=== PATIENT | female | born 1995 | race Two or more races ===

== ENCOUNTER 2022-11-27 18:50 | Inpatient (IN) | payer MEDICAID ==
[~2022-11-27] VITALS: Ht 149.9 cm; Wt 70.3 kg
[2022-11-27 19:17] VITALS: BP 112/75; PULSE 95; RESP 19; TEMP 98.1
[2022-11-27] MEDS ORDERED: PRETAB PO (19:17)
[2022-11-27] MEDS ORDERED: OSC500 PO (19:17)
[2022-11-27] MEDS ORDERED: FERR-149 PO (19:17)
[2022-11-27] MEDS ORDERED: METHYLERGONOVINE 0.2 MG/ML AMP IM PRN (22:05)
[2022-11-27] MEDS ORDERED: LACTATED RINGERS 500 ML IV ONE (22:05)
[2022-11-27] MEDS ORDERED: ONDANSETRON 4 MG/2 ML VIAL IVP PRN (22:10)
[2022-11-27] MEDS ORDERED: MORPHINE SULFATE 10 MG/ML VIAL IVP PRN (22:10)
[2022-11-27 22:42] LABS: BASOPHILS % (AUTO) 0.1 % (0.0-2.0); EOSINOPHILS # (AUTO) 0.1 K/uL (0-0.4); HEMATOCRIT 35.7 % (36-48); HEMOGLOBIN 12.1 g/dL (12.0-16.0); LYMPHOCYTES # (AUTO) 2.4 K/uL (2.5-16.5); LYMPHOCYTES % (AUTO) 22.5 % (20.5-51.1); MEAN CORPUSCULAR HEMOGLOBIN 30 pg (27-31); MEAN CORPUSCULAR HGB CONC 34 g/dL (33-37); MEAN CORPUSCULAR VOLUME 89.5 fL (80-94); MONOCYTES # (AUTO) 0.9 K/uL (0.8-1.0); MONOCYTES % (AUTO) 8.3 % (1.7-9.3); NEUTROPHILS # (AUTO) 7.2 K/uL (1.8-7.7); NEUTROPHILS % (AUTO) 68.1 % (42.2-75.2); PLATELET COUNT (AUTO) 245 K/uL (140-450); RED BLOOD CELL COUNT(AUTO) 3.99 MIL/uL (4.20-5.40); RED CELL DISTRIBUTION WIDTH 13.7 % (11.6-13.7); WHITE BLOOD COUNT (AUTO) 10.5 K/uL (4.8-10.8)
[2022-11-27] MEDS: LACTATED RINGERS 1,000 ML IV SCH ×2 (22:44→23:41)
[2022-11-27 23:01] LABS: ANION GAP 12.5 (8-16); CALCIUM 8.4 mg/dL (8.5-10.1); CARBON DIOXIDE 23.4 mmol/L (21-32); CREATININE 0.8 mg/dL (0.6-1.3); POTASSIUM 3.9 mmol/L (3.5-5.1); TOTAL BILIRUBIN 0.2 mg/dL (0.0-1.0); TOTAL PROTEIN, SERUM 6.6 g/dL (6.4-8.2)
[2022-11-27 23:17] LABS: ALBUMIN 2.7 g/dL (3.4-5.0)
[2022-11-27 23:31] LABS: INR 0.86 (0.8-1.2); PARTIAL THROMBOPLASTIN TIME 24.7 secs (22-35.6); PROTHROMBIN TIME 9.1 secs (10.8-13.4)
[2022-11-27] MEDS ORDERED: ROPIVACAINE 0.2%/NS PREMIX 200 ML EPI ONE (23:40)
[2022-11-28] MEDS ORDERED: ROPIVACAINE 0.2%/NS PREMIX 100 ML EPI SCH (00:10)
[2022-11-28 03:58] LABS: APPEARANCE,URINE CLEAR (CLEAR); BILIRUBIN,URINE NEGATIVE (NEGATIVE); BLOOD, URINE 3+ (NEGATIVE); COLOR,URINE YELLOW (YELLOW); LEUKOCYTE ESTERASE ,URINE TRACE (NEGATIVE); NITRITE, URINE NEGATIVE (NEGATIVE); PROTEIN,URINE NEGATIVE (NEGATIVE); UGLUCOSE NEGATIVE (NEGATIVE); UROBILINOGEN,URINE 0.2 EU/dL (0.2 - 1)
[2022-11-28 04:11] LABS: BACTERIA,URINE OCCASSIONAL /HPF (None Seen); RBC,URINE >100 /HPF (0-5); WBC,URINE 0-5 /HPF (0-5)
[2022-11-28] MEDS: LACTATED RINGERS 1,000 ML IV SCH ×2 (05:04→12:35)
[2022-11-28] MEDS ORDERED: OXYTOCIN 20 UNITS in LACTATED RINGERS 1,000 ML IV SCH ×2 (07:35→18:45)
[2022-11-28] MEDS ORDERED: OXYTOCIN 20 UNITS/LR PREMIX 1,000 ML IV ONE (10:39)
[2022-11-28] MEDS ORDERED: ROPIVACAINE 0.2%/NS PREMIX 200 ML EPI ONE (13:16)
[2022-11-28] MEDS ORDERED: AMPICILLIN 2,000 MG in NACL 0.9% 100 ML IV SCH (14:15)
[2022-11-28] MEDS ORDERED: LIDOCAINE 1% 500 MG/50 ML VIAL ONE (14:56)
[2022-11-28] MEDS ORDERED: AMPICILLIN 2,000 MG VIAL ONE (14:59)
[2022-11-28] MEDS ORDERED: LIDOCAINE 1% 500 MG/ 50 ML VIAL INJ ONE (15:05)
[2022-11-28] MEDS ORDERED: MEASLES, MUMPS, AND RUBELLA 1 VIAL SQVAC ONE (16:00)
[2022-11-28] MEDS ORDERED: HYDROcodone/APAP 5/325 MG 1 TAB TAB PO PRN (16:00)
[2022-11-28] MEDS ORDERED: BENZOCAINE/MENTHOL 20%-0.5% 60 GM CAN TP PRN (16:00)
[2022-11-28] MEDS ORDERED: DOCUSATE SODIUM 100 MG GELCAP PO PRN (16:00)
[2022-11-28] MEDS ORDERED: bisacodyL 5 MG TABEC PO PRN (16:00)
[2022-11-28] MEDS ORDERED: METHYLERGONOVINE 0.2 MG TAB PO PRN (16:00)
[2022-11-28] MEDS ORDERED: METHYLERGONOVINE 0.2 MG/ML AMP IM PRN ×2 (16:00→18:45)
[2022-11-28] MEDS ORDERED: SIMETHICONE 80 MG TAB.CHEW PO PRN (16:00)
[2022-11-28] MEDS ORDERED: IBUPROFEN 800 MG TAB PO PRN (16:00)
[2022-11-28] MEDS ORDERED: IBUPROFEN 600 MG TAB PO PRN (16:00)
[2022-11-28] MEDS ORDERED: OXYTOCIN 10 UNITS/ML VIAL IM PRN (16:00)
[2022-11-28] MEDS ORDERED: LACTATED RINGERS 1,000 ML IV SCH (18:45)
[2022-11-28] MEDS ORDERED: MORPHINE SULFATE 5 MG/ML VIAL IVP PRN (18:45)
[2022-11-28] MEDS ORDERED: ONDANSETRON 4 MG/2 ML VIAL IVP PRN (18:45)
[2022-11-29 10:04] LABS: HEMATOCRIT 28.8 % (36-48); HEMOGLOBIN 9.8 g/dL (12.0-16.0)
[2022-11-29] MEDS: HYDROcodone/APAP 5/325 MG 1 TAB TAB PO PRN (21:00)
[2022-11-30] MEDS: HYDROcodone/APAP 5/325 MG 1 TAB TAB PO PRN (06:56)
== END 2022-11-30 11:45 | disposition home or self-care (01) | DRG 560 ==
LOC: MLD 18:50 → OBSVTOIN 21:45 → INTOOBSV 21:45 → OBSVTOIN 22:15 → MLD 11-28 21:15 → MFCC 11-28 21:15 → UNDODISOB 11-30 11:45
PROVIDERS: ADMIT Obstetrics & Gynecology; ATTEND Obstetrics & Gynecology
PROC: 10E0XZZ Delivery of Products of Conception, External Approach (ICD-10-PCS; principal; 2022-11-28)
PROC: 0KQM0ZZ Repair Perineum Muscle, Open Approach (ICD-10-PCS; 2022-11-28)
PROC: 3E0R3BZ Introduction of Anesthetic Agent into Spinal Canal, Percutaneous Approach (ICD-10-PCS; 2022-11-28)
PROC: 00HU33Z Insertion of Infusion Device into Spinal Canal, Percutaneous Approach (ICD-10-PCS; 2022-11-28)
DX: O70.1 Second degree perineal laceration during delivery (principal); Z37.0 Single live birth; O62.2 Other uterine inertia; Z20.822 Contact with and (suspected) exposure to COVID-19; Z3A.38 38 weeks gestation of pregnancy
CPT/HCPCS: 36415; 51702; 59409; 80053; 81001; 85018; 85025; 85610; 85730; 86592; 86886; 86900; 86901; 90715; G0378; J0290; J2001; J2590; J2795